=== PATIENT | male | born 1945 | race Hispanic/Latino ===

== ENCOUNTER 2016-10-22 07:57 | Outpatient (CLI) | payer MEDICARE ==
[2016-10-22 08:41] LABS: Blood Urea Nitrogen 15 mg/dL (9-20)
[2016-10-22] MEDS ORDERED: NACL ONE (08:41)
--- NOTE | 2016-10-22 12:09 | Cat Scan Report ---
CTA NECK: HISTORY: Occlusion and stenosis of bilateral carotid arteries. TECHNIQUE: Helical CT following IV contrast. Sagittal and coronal reformatted images. 3D volume rendering technique. Stenosis was calculated using NASCET criteria. FINDINGS: The visualized aortic arch is widely patent and normal caliber. Scattered partially calcified plaques are identified. The innominate artery and left common carotid artery are widely patent. There is 50% stenosis at the origin of the left subclavian artery. Within the right carotid system, there is moderate to severe partially calcified plaque in the right carotid bulb/proximal right ICA resulting in 90% stenosis or greater. The remainder of the right carotid system is widely patent. Within the left carotid system, there is mild partially calcified plaque in the proximal left ICA resulting in less than 30% stenosis. The vertebral arteries are codominant and demonstrate less than 30% stenosis. IMPRESSION: 90% stenosis in the proximal right ICA. 50% stenosis at the origin of the left subclavian artery.
== END 2016-10-22 07:58 | disposition home or self-care (01) ==
LOC: CT 07:57
PROVIDERS: ATTEND Surgery Vascular Surgery
DX: I65.23 Occlusion and stenosis of bilateral carotid arteries (principal)
CPT/HCPCS: 36415; 70498; 82565; 84520; Q9967